=== PATIENT | female | born 1955 | race Caucasian/White ===

== ENCOUNTER → 2016-09-25 | Outpatient (CLI) | payer BC ==
--- NOTE | 2016-09-25 17:05 | CT ---
EXAMINATION TYPE: CT sella turcica wo con DATE OF EXAM: 09/25/2016 COMPARISON: CT sella turcica 08/09/2014 HISTORY: PITUITARY ADENOMA CT DLP: 150.0 mGycm Automated exposure control for dose reduction was used. FINDINGS: No interval change is evident. Lack of contrast could compromise sensitivity. Inflammatory change not ed in the left maxillary sinus, ethmoid air cells. There are guerrero bullosa bilaterally. The orbits a nd globes show symmetric appearance. Cerebral vascular calcifications noted incidentally. Mastoid air cells are well aerated. There is no erosion of the scutum bilaterally. Auditory ossicles show symmet joshua appearance. No thickening of the tympanic membranes. No interval change in the appearance of the sella. IMPRESSION: STABLE EXAM, NO ACUTE ABNORMALITY. SINUS DISEASE.
== END | disposition home or self-care (01) ==
LOC: RADCTMAIN 16:43
PROVIDERS: ATTEND Internal Medicine
DX: D35.2 Benign neoplasm of pituitary gland (principal)
CPT/HCPCS: 70480

== ENCOUNTER → 2017-01-22 | Outpatient (CLI) | payer BC ==
--- NOTE | 2017-01-23 09:44 | MM ---
Reason for exam: screening (asymptomatic). Last mammogram was performed 1 year and 4 months ago. History: Patient is postmenopausal. Family history of breast cancer in maternal aunt. Benign US biopsy breast VAD RT of the right breast, October 06, 2015. Physical Findings: A clinical breast exam by your physician is recommended on an annual basis and results should be correlated with mammographic findings. MG Screening Mammo w CAD Bilateral CC and MLO view(s) were taken. Prior study comparison: October 06, 2015, right breast MG diagnostic mammo RT wo CAD. September 25, 2015, bilateral MG diagnostic mammo w CAD ELLEN. There are scattered fibroglandular densities. Finding: There are typically benign round, regional calcifications in the upper outer quadrant, anterior position of the left breast. Previous mammotome biopsy in the right breast. There is no discrete abnormality. ASSESSMENT: Benign, BI-RAD 2 RECOMMENDATION: Routine screening mammogram of both breasts in 1 year.
== END | disposition home or self-care (01) ==
LOC: RADMAMWWP 16:50
PROVIDERS: ATTEND Internal Medicine
DX: Z12.31 Encounter for screening mammogram for malignant neoplasm of breast (principal)

== ENCOUNTER → 2018-04-07 | Outpatient (CLI) | payer BC ==
--- NOTE | 2018-04-11 09:37 | MM ---
Reason for exam: screening (asymptomatic). Last mammogram was performed 1 year and 2 months ago. History: Patient is postmenopausal. Family history of breast cancer in maternal aunt. Benign US biopsy breast VAD RT of the right breast, October 06, 2015. MG Screening Mammo w CAD Bilateral CC and MLO view(s) were taken. Prior study comparison: January 22, 2017, bilateral MG screening mammo w CAD. October 06, 2015, right breast MG diagnostic mammo RT wo CAD. The breast tissue is heterogeneously dense. This may lower the sensitivity of mammography. There are stable benign calcifications. No discrete abnormality. No significant changes when compared with prior studies. ASSESSMENT: Benign, BI-RAD 2 RECOMMENDATION: Routine screening mammogram of both breasts in 1 year.
== END | disposition home or self-care (01) ==
LOC: RADMAMWWP 14:00
PROVIDERS: ATTEND Internal Medicine
DX: Z12.31 Encounter for screening mammogram for malignant neoplasm of breast (principal)
CPT/HCPCS: 77067

== ENCOUNTER → 2019-02-08 | Outpatient (CLI) | payer BC ==
--- NOTE | 2019-02-08 16:30 | CT ---
EXAMINATION TYPE: CT sella turcica wo con DATE OF EXAM: 02/08/2019 COMPARISON: 09/25/2016 HISTORY: Pituitary adenoma follow up. CT DLP: 611 mGycm Automated exposure control for dose reduction was used. FINDINGS: No interval change is evident. Lack of contrast limits evaluation. Inflammatory change note d in the left maxillary sinus, ethmoid air cells. There are guerrero bullosa bilaterally. The orbits an d globes show symmetric appearance. Cerebral vascular calcifications noted incidentally. Mastoid air cells are well aerated. There is no erosion of the scutum bilaterally. Auditory ossicles show symmetr ic appearance. No thickening of the tympanic membranes. No interval change in the appearance of the s vielka. 13 mm lesion noted maximal transverse dimension on the coronal portion of the study. IMPRESSION: Stable examination of the sella turcica without interval change.
== END | disposition home or self-care (01) ==
LOC: RADCTMAIN 16:01
PROVIDERS: ATTEND Internal Medicine
DX: D35.2 Benign neoplasm of pituitary gland (principal)
CPT/HCPCS: 70480

== ENCOUNTER 2019-09-30 05:52 | Day surgery (SDC) | payer BC ==
[2019-09-28 13:38] VITALS: BMI 41.1
[2019-09-30] MEDS ORDERED: SODIUM CHLORIDE 0.9% 1,000 ML IV SCH (05:54)
[2019-09-30] MEDS ORDERED: CLINDAMYCIN 900 MG in DEXTROSE 5% IN WATER 50 ML IVPB ONE ×2 (06:00)
[2019-09-30] MEDS ORDERED: CLINDAMYCIN 600 MG in SODIUM CHLORIDE 0.9% IRRIGATIO 250 ML IRRIGATION ONE (06:00)
[2019-09-30] MEDS ORDERED: SODIUM CHLORIDE 0.9% 1,000 ML IV ONE (06:35)
[2019-09-30 06:36] VITALS: RESP 16; TEMP 98
[2019-09-30] MEDS ORDERED: LIDOCAINE 1% INJ 10MG/ML (20 ML MDV) ONE (07:49)
[2019-09-30] MEDS ORDERED: fentaNYL (PF) 50 MCG/ML 2 ML AMP ONE (07:49)
[2019-09-30] MEDS ORDERED: MIDAZOLAM 2 MG/2 ML VIAL IV ONE (08:04)
[2019-09-30] MEDS ORDERED: LIDOCAINE 1% INJ 10MG/ML (20 ML MDV) SQ ONE ×2 (08:08→08:20)
[2019-09-30] MEDS ORDERED: MIDAZOLAM 2 MG/2 ML VIAL IVP ONE (08:11)
[2019-09-30] MEDS ORDERED: fentaNYL (PF) 50 MCG/ML 2 ML AMP IVP ONE (08:13)
--- NOTE | 2019-09-30 09:03 | P.PCN ---
Preoperative Diagnosis: Patient underwent EP procedure under conscious sedation/moderate sedation, monitoring of the level of consciousness and physiologic parameters including but not limited to vital signs and oxygenation. Patient tolerated the procedure well without any acute complications. Start time: 805 Stop time: 855
[2019-09-30] MEDS ORDERED: ACETAMINOPHEN TAB 325 MG TAB PO PRN (09:04)
--- NOTE | 2019-09-30 09:12 | P.PCN ---
Preoperative Diagnosis: Cinefluoroscopy of the leads showed 2 leads in the right heart one in the right atrial appendage and the other in the RV apex No fractures or breaks noted Plan Proceed with dual-chamber pacemaker generator change
--- NOTE | 2019-09-30 11:18 | PCN ---
PROCEDURE NOTE Suzy Christensen has sick sinus syndrome. She had a dual-chamber pacemaker implanted 10 years back and her device is at [facility]. She was brought in for dual-chamber pacemaker generator change. PROCEDURE IN DETAIL: The patient was brought to the EP lab in a fasting state. Written informed consent was obtained prior to the procedure. The left shoulder area was prepped and draped as per protocol. 1% lidocaine was used for local anesthesia. A 4 cm incision was made in the left pectoral area and carried down to the level of the generator. The generator was explanted. A partial capsulectomy was performed. Hemostasis was assured. The old generator was explanted. The new generator was implanted. The new generator is a [employer] model number [id number] serial #[id number]. The leads were interrogated 0.6 mV, pacing impedance 400 ohms. RV pacing threshold 1.25 V at 0.4 milliseconds, R-waves greater than 12 mV and pacing impedance 450 ohms. The device was then programmed to DDDR 60-130 ppm with VIP mode turned on and mode switch turned on. RESULTS: Successful dual-chamber pacemaker generator change for device at [facility]. The procedure was performed under conscious sedation. Please see separate dictation. MMODL / IJN: [id number] /
[2019-09-30] MEDS ORDERED: LISINOPRIL 20 MG TAB PO SCH (12:00)
[2019-09-30] MEDS: CLINDAMYCIN 900 MG in DEXTROSE 5% IN WATER 50 ML IVPB SCH ×4 (12:48→17:59)
[2019-09-30 15:40] VITALS: BP 129/70; PULSE 68
[2019-10-01] MEDS ORDERED: LEVOTHYROXINE 100 MCG TAB PO SCH (06:30)
[2019-10-01] MEDS ORDERED: FUROSEMIDE 40 MG TAB PO SCH (09:00)
[2019-10-01 14:45] LABS: Basophils # (A) 0.1 k/uL (0-0.2); Basophils % (A) 1 %; Eosinophils # (A) 0.2 k/uL (0-0.7); Eosinophils % (A) 2 %; HCT 51.6 % (34.0-46.0); HGB 15.5 gm/dL (11.4-16.0); Hypochromasia Marked; Lymphocytes # (A) 1.9 k/uL (1.0-4.8); Lymphocytes % (A) 23 %; MCH 29.9 pg (25.0-35.0); MCV 99.5 fL (80.0-100.0); Mean Platelet Volume 10.1; Monocytes # (A) 0.5 k/uL (0-1.0); Monocytes % (A) 6 %; Neutrophils # (A) 5.6 k/uL (1.3-7.7); Neutrophils % (A) 67 %; Platelet Count 190 k/uL (150-450); RBC 5.18 m/uL (3.80-5.40); RDW 13.9 % (11.5-15.5); WBC 8.4 k/uL (3.8-10.6)
[2019-10-03] MEDS ORDERED: LEVOTHYROXINE 50 MCG TAB PO SCH (06:30)
== END 2019-09-30 18:56 | disposition home or self-care (01) ==
LOC: CATHEP 05:52
PROVIDERS: ATTEND Internal Medicine Clinical Cardiac Electrophysiology
DX: Z45.010 Encounter for checking and testing of cardiac pacemaker pulse generator [battery] (principal); I49.5 Sick sinus syndrome; I10 Essential (primary) hypertension; E78.5 Hyperlipidemia, unspecified; Z79.82 Long term (current) use of aspirin; Z79.899 Other long term (current) drug therapy; Z88.1 Allergy status to other antibiotic agents; Z88.5 Allergy status to narcotic agent; Z88.0 Allergy status to penicillin
CPT/HCPCS: 33228; 85025; C1785; J2250; J2001; J3010

== ENCOUNTER → 2020-06-02 | Outpatient (CLI) | payer BC ==
--- NOTE | 2020-06-05 12:33 | MM ---
Reason for exam: screening (asymptomatic). Last mammogram was performed 2 years and 2 months ago. History: Patient is postmenopausal. Family history of breast cancer in maternal aunt. Benign US biopsy breast VAD RT of the right breast, October 06, 2015. Physical Findings: A clinical breast exam by your physician is recommended on an annual basis and results should be correlated with mammographic findings. MG 3D Screening Mammo W/Cad Bilateral CC and MLO view(s) were taken. Prior study comparison: April 07, 2018, bilateral MG screening mammo w CAD. January 22, 2017, bilateral MG screening mammo w CAD. 5mm nodule central lower right breast 8.7cm from nipple. ASSESSMENT: Incomplete: need additional imaging evaluation, BI-RAD 0 RECOMMENDATION: Special view mammogram and ultrasound of the right breast. [facility] will attempt to contact patient to return for supplemental views and ultrasound.
== END ==
LOC: RADMAMWWP 11:54
PROVIDERS: ATTEND Internal Medicine
DX: Z12.31 Encounter for screening mammogram for malignant neoplasm of breast (principal); Z78.0 Asymptomatic menopausal state; Z80.3 Family history of malignant neoplasm of breast
CPT/HCPCS: 77063; 77067

== ENCOUNTER → 2020-06-21 | Outpatient (CLI) | payer BC ==
--- NOTE | 2020-06-22 09:28 | MM ---
Reason for exam: additional evaluation requested from abnormal screening. Last mammogram was performed 1 month ago. History: Patient is postmenopausal. Family history of breast cancer in maternal aunt. Benign US biopsy breast VAD RT of the right breast, October 06, 2015. Physical Findings: Nurse did not find any significant physical abnormalities on exam. MG 3D Work Up W/Cad RT Spot compression CC, spot compression MLO, and ML view(s) were taken of the right breast. Prior study comparison: June 02, 2020, bilateral MG 3d screening mammo w/cad. April 07, 2018, bilateral MG screening mammo w CAD. The breast tissue is heterogeneously dense. This may lower the sensitivity of mammography. Persistent nodule 8.6cm from nipple measuring 5.4mm at 6 o'clock right breast. These results were verbally communicated with the patient and result sheet given to the patient on 06/21/20. ASSESSMENT: Incomplete: need additional imaging evaluation, BI-RAD 0 RECOMMENDATION: Ultrasound of the right breast.
--- NOTE | 2020-06-22 09:31 | USB ---
Reason for exam: additional evaluation requested from abnormal screening. History: Patient is postmenopausal. Family history of breast cancer in maternal aunt. Benign US biopsy breast VAD RT of the right breast, October 06, 2015. US Breast Workup Limited RT Right limited breast ultrasound including focal area of concern, retroareolar and axilla demonstrates a 0.7 x 0.4 x 0.4cm tall, solid, hypoechoic lesion at 6 o'clock. These results were verbally communicated with the patient and result sheet given to the patient on 06/21/20. ASSESSMENT: Suspicious, BI-RAD 4 RECOMMENDATION: Ultrasound core biopsy of the right breast. Called office with mammographic findings and has scheduled an appointment for the patient for 07/06/20 at 11:[address] Rahman. Biopsy scheduled for 06/29/20 at 12:00. PRELIMINARY REPORT CALLED AND FAXED TO DR. RAHMAN ON 06/22/20.
== END | disposition home or self-care (01) ==
LOC: RADMAMWWP 15:03
PROVIDERS: ATTEND Internal Medicine
DX: Z78.0 Asymptomatic menopausal state (principal); Z80.3 Family history of malignant neoplasm of breast
CPT/HCPCS: 77061; 77065

== ENCOUNTER → 2020-06-29 | Day surgery (SDC) | payer BC ==
[2020-06-29 12:24] VITALS: RESP 16
[2020-06-29 14:11] VITALS: BP 131/84; PULSE 60; TEMP 98.3
--- NOTE | 2020-06-29 14:48 | USB ---
EXAMINATION TYPE: US biopsy breast VAD RT DATE OF EXAM: 06/29/2020 CLINICAL HISTORY: R92.8 abnormal mammogram. TECHNIQUE: Ultrasound guided vaccuum assisted core biopsy of right breast. COMPARISON: 06/21/2020 FINDINGS: The ultrasound guided core biopsy procedure was explained to the patient. The risks, benefits, alternatives were discussed. An informed consent was then obtained. Timeout was performed. The patient was placed in supine positioning for imaging and for the procedure. The overlying skin was prepped with betadine and sterilely draped in usual sterile fashion. Lidocaine 1% was used as anesthetic into the skin and deeper breast tissue up to area of concern in the breast. A small skin derrek was made with surgical scalpel. Under ultrasound guidance, a 12-gauge vacuum assisted biopsy device was used to obtain 6 core samples. A biopsy clip was left in lesion. When clip was placed. Good hemostasis was obtained with direct pressure. Discharge instructions were discussed with the patient. The patient will follow up with the referring physician for results. Postprocedure mammogram: The patient was transferred to mammography for physician ordered post procedure mammogram for clip placement verification. The clip is in the expected region of the biopsy. The patient tolerated the procedure well without any immediate complication. The patient was discharged to home in stable condition. IMPRESSION: 1. Successful ultrasound guided biopsy right breast. Recommendations: 1. Recommendations are pending pathology results Recommendations: 1. Recommendations are pending pathology results. Pathology Results: Malignant RIGHT BREAST, 6:00, ULTRASOUND GUIDED CORE BIOPSY: Invasive moderately differentiated ductal carcinoma (Grade 2). See Surgical Pathology Cancer Case Summary. Recommendation Surgical consult of the right breast. CHRISTIANO
--- NOTE | 2020-06-29 14:48 | MM ---
EXAMINATION TYPE: US biopsy breast VAD RT DATE OF EXAM: 06/29/2020 CLINICAL HISTORY: R92.8 abnormal mammogram. TECHNIQUE: Ultrasound guided vaccuum assisted core biopsy of right breast. COMPARISON: 06/21/2020 FINDINGS: The ultrasound guided core biopsy procedure was explained to the patient. The risks, benef its, alternatives were discussed. An informed consent was then obtained. Timeout was performed. The patient was placed in supine positioning for imaging and for the procedure. The overlying skin w as prepped with betadine and sterilely draped in usual sterile fashion. Lidocaine 1% was used as ane sthetic into the skin and deeper breast tissue up to area of concern in the breast. A small skin rogers k was made with surgical scalpel. Under ultrasound guidance, a 12-gauge vacuum assisted biopsy device was used to obtain 6 core samples . A biopsy clip was left in lesion. When clip was placed. Good hemostasis was obtained with direct pressure. Discharge instructions were discussed with the genesis lamb. The patient will follow up with the referring physician for results. Postprocedure mammogram: The patient was transferred to mammography for physician ordered post proced ure mammogram for clip placement verification. The clip is in the expected region of the biopsy. The patient tolerated the procedure well without any immediate complication. The patient was dischar ged to home in stable condition. IMPRESSION: 1. Successful ultrasound guided biopsy right breast. Recommendations: 1. Recommendations are pending pathology results
== END ==
LOC: RADUSWWP 12:02
PROVIDERS: ATTEND Internal Medicine
DX: C50.811 Malignant neoplasm of overlapping sites of right female breast (principal); Z17.0 Estrogen receptor positive status [ER+]; Z88.1 Allergy status to other antibiotic agents; Z88.5 Allergy status to narcotic agent; Z88.0 Allergy status to penicillin
CPT/HCPCS: 88305; 88342; 88341; 77065; 19083; A4648; J2001

== ENCOUNTER → 2020-08-04 | Outpatient (CLI) | payer BC ==
--- NOTE | 2020-08-04 16:20 | CT ---
EXAMINATION TYPE: CT sella turcica wo/w con DATE OF EXAM: 08/04/2020 COMPARISON: 02/08/2019 HISTORY: Pituitary neoplasm. CT DLP: 300 mGycm Automated exposure control for dose reduction was used. Pre and post contrast enhanced CT of the sell a turcica was performed in the axial and coronal planes. CONTRAST: Performed without and with IV Contrast, patient injected with 100 mL of Isovue M300. FINDINGS: There is a partially empty sella. Again noted is an approximately 12 mm lesion maximal transverse dim ension involving the pituitary gland on the coronal portion of the study.There are guerrero bullosa eduardo aterally. The orbits and globes show symmetric appearance. Cerebral vascular calcifications noted inc identally. Mastoid air cells are well aerated. There is no erosion of the scutum bilaterally. Hematology Technologist y ossicles show symmetric appearance. No thickening of the tympanic membranes. IMPRESSION: STABLE APPEARANCE OF THE SELLA TURCICA
== END | disposition home or self-care (01) ==
LOC: RADCTMAIN 13:04
PROVIDERS: ATTEND Internal Medicine
DX: C75.1 Malignant neoplasm of pituitary gland (principal)
CPT/HCPCS: 70482; Q9967

== ENCOUNTER → 2020-10-03 | Outpatient (CLI) | payer BC ==
--- NOTE | 2020-10-04 09:25 | BD ---
EXAMINATION TYPE: Axial Bone Density DATE OF EXAM: 10/03/2020 COMPARISON: 08/18/2014 CLINICAL HISTORY: Postmenopausal Height: 64 Weight: 251.5 FRAX RISK QUESTIONS: Alcohol (3 or more units per day): no Family History (Parent hip fracture): yes Glucocorticoids (More than 3mos): no (Ex: prednisone, prednisolone, methylprednisolone, dexamethasone, and hydrocortisone). History of Fracture in Adulthood: yes Secondary Osteoporosis: 1. Type 1 Diabetes: no 2. Hyperthyroidism: no 3. Menopause before 45: no 4. Malnutrition: no 5. Chronic liver disease: no Rheumatoid Arthritis: no Current Tobacco Use: no RISK FACTORS HISTORY OF: History of Wrist Fracture: right hand Surgery to Spine/Hip(right/left)/Wrist (right/left): right hip replaced When: 2018 Family History of Osteoporosis: yes Active: yes Diet low in dairy products/other sources of calcium: yes Postmenopausal woman: age56 Lost more than 2 inches in height since high school: no Adrenal Insufficiency: MEDICATIONS: Additional History: recent breast cancer diagnosis EXAM MEASUREMENTS: Bone mineral densitometry was performed using the [employer] System. Bone mineral density as measured about the Lumbar spine is: ----- L1-L4(G/cm2): 1.136 T Score Values are as follows: ----- L2: -0.7 ----- L3: -0.2 ----- L4: 0.7 ----- L1-L4: -0.4 Bone mineral density has: increased 10.0 % since study of: 6. Bone mineral density about the L hip (g/cm2): 0.652 T Score values are as follows: -----L Neck: -2.8 -----L Total: -3.0 Bone mineral density has: decreased -13.6 % since study of: 6..2014 IMPRESSION: Osteoporosis. NOTE: T-SCORE=SD OF THE YOUNG ADULT MEAN.
== END | disposition home or self-care (01) ==
LOC: RADBDWWP 15:39
PROVIDERS: ATTEND Internal Medicine Hematology & Oncology
DX: M81.0 Age-related osteoporosis without current pathological fracture (principal); C50.811 Malignant neoplasm of overlapping sites of right female breast; Z79.890 Hormone replacement therapy
CPT/HCPCS: 77080

== ENCOUNTER → 2021-01-12 | Outpatient (CLI) | payer BC ==
--- NOTE | 2021-01-12 16:35 | NM ---
EXAMINATION TYPE: NM parathyroid DATE OF EXAM: 01/12/2021 COMPARISON: NONE HISTORY: Hypercalcemia, E83.52 TECHNIQUE: Following administration of 24.8 mCi Tc99m Sestamibi. Anterior projection images of the neck and ches t were obtained 10 minutes and 3 hours post injection FINDINGS: Thyroid tracer washout: Delayed images demonstrate near-complete tracer washout from the thyroid. Parathyroid uptake: I question some increased uptake noted at the level of the lower pole the left lo be of the thyroid gland on washout images Normal uptake: There is physiological tracer uptake in the salivary glands, and thyroid gland. IMPRESSION: Equivocal for possible uptake along the lower pole of the left lobe of the thyroid, contrast-enhanced CT of the neck or MRI may be of benefit
== END | disposition home or self-care (01) ==
LOC: RADNMMAIN 11:23
PROVIDERS: ATTEND Internal Medicine Nephrology
DX: E83.52 Hypercalcemia (principal)
CPT/HCPCS: 78070; A9500

== ENCOUNTER → 2022-03-28 | Outpatient (CLI) | payer MEDICARE, BC ==
--- NOTE | 2022-03-29 07:41 | MM ---
Reason for Exam: Screening (asymptomatic). Last screening mammogram was performed 12 month(s) ago. Patient History: Menarche at age 13. First Full-Term at age 26. Postmenopausal. Patient has history of breast feeding. Breast cancer, age 65. Previous chest radiation therapy at age 65. 2020, Lumpectomy on the Right side. 06/29/2020, Malignant Core Biopsy on the right side. 10/06/2015, Benign Core Biopsy on the right side. 2020, Radiation Therapy on the right side. Maternal aunt had breast cancer at or over age 50. Prior Study Comparison: 06/21/2020 Right Diagnostic Mammogram, [facility]. 06/29/2020 Right Diagnostic Mammogram, [facility]. 03/26/2021 Bilateral Diagnostic Mammogram, [facility]. Tissue Density: The breast tissue is heterogeneously dense. This may lower the sensitivity of mammography. Findings: Analyzed By CAD. There is no suspicious group of microcalcifications or new suspicious mass in either breast. Benign-appearing bilateral calcifications. Postoperative changes on the right breast. Mammotome biopsy clip within the right breast. Partial visualization of left chest cardiac pacemaking device. Overall Assessment: Benign, BI-RAD 2 Management: Screening Mammogram of both breasts in 1 year. A clinical breast exam by your physician is recommended on an annual basis and results should be correlated with mammographic findings. Electronically signed and approved by: Crispin Tyler D.O.
== END | disposition home or self-care (01) ==
LOC: RADMAMWWP 11:15
PROVIDERS: ATTEND Internal Medicine Hematology & Oncology
DX: Z12.31 Encounter for screening mammogram for malignant neoplasm of breast (principal); Z80.3 Family history of malignant neoplasm of breast; Z78.0 Asymptomatic menopausal state; Z85.3 Personal history of malignant neoplasm of breast
CPT/HCPCS: 77063; 77067

== ENCOUNTER → 2023-04-21 | Outpatient (CLI) | payer MEDICARE, BC ==
--- NOTE | 2023-04-22 09:03 | MM ---
Reason for Exam: Screening (asymptomatic). Last mammogram was performed 1 year(s) and 1 month(s) ago. Patient History: Menarche at age 13. First Full-Term at age 26. Postmenopausal. Patient has history of breast feeding. Breast cancer, right, age 65. Previous chest radiation therapy at age 65. 2020, Lumpectomy on the Right side. 06/29/2020, Malignant Core Biopsy on the right side. 10/06/2015, Benign Core Biopsy on the right side. 2020, Radiation Therapy on the right side. Maternal aunt had breast cancer at or over age 50. Prior Study Comparison: 06/29/2020 Right Diagnostic Mammogram, [facility]. 03/26/2021 Bilateral Diagnostic Mammogram, [facility]. 03/28/2022 Bilateral MG 3D screening mammo w/cad, [facility]. Tissue Density: The breast tissue is heterogeneously dense. This may lower the sensitivity of mammography. Findings: Analyzed By CAD. There is no suspicious group of microcalcifications or new suspicious mass in either breast. Postsurgical change right breast. Benign-appearing calcifications. Overall Assessment: Benign, BI-RAD 2 Management: Screening Mammogram of both breasts in 1 year. . Patient should continue monthly self-breast exams. A clinical breast exam by your physician is recommended on an annual basis. This exam should not preclude additional follow-up of suspicious palpable abnormalities. Note on Leeanne scores and lifetime risk: 1. A Leeanne score greater than 3% is considered moderate risk. If this is the case, consider specialist referral to assess eligibility for a risk reducing agent. 2. If overall lifetime risk for the development of breast cancer is 20% or higher, the patient may qualify for future screening with alternating mammogram and breast MRI. Electronically signed and approved by: Jn Madrigal M.D. Radiologis
== END | disposition home or self-care (01) ==
LOC: RADMAMWWP 13:27
PROVIDERS: ATTEND Internal Medicine Hematology & Oncology
DX: Z12.31 Encounter for screening mammogram for malignant neoplasm of breast (principal); Z80.3 Family history of malignant neoplasm of breast; Z78.0 Asymptomatic menopausal state
CPT/HCPCS: 77063; 77067

== ENCOUNTER → 2024-05-25 | Outpatient (CLI) | payer MEDICARE, BC ==
--- NOTE | 2024-05-25 14:22 | MM ---
Reason for Exam: Hx of breast cancer, conservation therapy. Last mammogram was performed 1 year(s) and 1 month(s) ago. Patient History: Menarche at age 13. First Full-Term at age 26. Postmenopausal. Patient has history of breast feeding. Breast cancer, right, age 65. Previous chest radiation therapy at age 65. 2020, Lumpectomy on the Right side. 06/29/2020, Malignant Core Biopsy on the right side. 10/06/2015, Benign Core Biopsy on the right side. 2020, Radiation Therapy on the right side. Maternal aunt had breast cancer at or over age 50. Prior Study Comparison: 03/26/2021 Bilateral Diagnostic Mammogram, [facility]. 03/28/2022 Bilateral MG 3D screening mammo w/cad, [facility]. 04/21/2023 Bilateral MG 3D screening mammo w/cad, [facility]. Tissue Density: The breasts are heterogeneously dense, which may obscure small masses. Findings: Analyzed By CAD. There is no suspicious group of microcalcifications or new suspicious mass in either breast. Postoperative changes right breast. Overall Assessment: Benign, BI-RAD 2 Management: Screening Mammogram of both breasts in 1 year. . Patient should continue monthly self-breast exams. A clinical breast exam by your physician is recommended on an annual basis. This exam should not preclude additional follow-up of suspicious palpable abnormalities. Note on Leeanne scores and lifetime risk: 1. A Leeanne score greater than 3% is considered moderate risk. If this is the case, consider specialist referral to assess eligibility for a risk reducing agent. 2. If overall lifetime risk for the development of breast cancer is 20% or higher, the patient may qualify for future screening with alternating mammogram and breast MRI. [facility], , 05/25/2024 2:19 PM. Electronically signed and approved by: Henry Castrejon M.D. Radiologis
== END | disposition home or self-care (01) ==
LOC: RADMAMWWP 13:12
PROVIDERS: ATTEND Internal Medicine Hematology & Oncology
DX: Z12.31 Encounter for screening mammogram for malignant neoplasm of breast (principal); R92.333 Mammographic heterogeneous density, bilateral breasts; C50.811 Malignant neoplasm of overlapping sites of right female breast; M81.0 Age-related osteoporosis without current pathological fracture; Z71.3 Dietary counseling and surveillance; I10 Essential (primary) hypertension; Z78.0 Asymptomatic menopausal state; Z80.3 Family history of malignant neoplasm of breast; Z85.3 Personal history of malignant neoplasm of breast
CPT/HCPCS: 77063; 77067